=== PATIENT | male | born 2000 | race Caucasian/White ===

== ENCOUNTER 2022-06-04 20:48 | Observation (INO) | payer OTHER ==
[2022-06-04 22:03] LABS: Hemoglobin 14.6 g/dL (13.5-17.5); Mean Corpuscular HGB CONC 34.6 g/dL (32.0-36.0); Mean Corpuscular Hemoglobin 28.3 pg (27.0-33.0); Mean Corpuscular Volume 81.8 fl (81.2-95.1); Mean Platelet Volume 11.2 fl (7.4-10.4); Platelet Count 92 10x3/uL (150-450); RBC Distribution Width 12.5 % (11.5-14.5); Red Blood Cell (RBC) Count 5.16 10x6/uL (4.32-5.72); White Blood Cell (WBC) Count 2.1 10x3/uL (3.5-10.5)
[2022-06-04 22:11] LABS: ALT (SGPT) 379 U/L (8-55); AST (SGOT) 361 U/L (5-34); Albumin 3.9 g/dL (3.5-5.0); Alkaline Phosphatase 203 U/L (40-110); Anion Gap 11 mmol/L (10-20); BUN (Urea Nitrogen) 8 mg/dL (8.9-20.6); Calc. Creatinine Clearance 0 mL/min (70-130); Calcium 8.8 mg/dL (7.8-10.44); Carbon Dioxide 27 mmol/L (22-29); Chloride 103 mmol/L (98-107); Estimated GFR 108; Globulin 2.8 g/dL (2.4-3.5); Glucose 98 mg/dL (70-105); Potassium 3.9 mmol/L (3.5-5.1); Protein, Total 6.7 g/dL (6.0-8.3); Sodium 137 mmol/L (136-145)
[2022-06-04 22:19] LABS: MONO NEGATIVE CONTROL ZONE White (Negative) (White); MONO POSITIVE CONTROL Pink Line (Positive) (PINK/RED); Mononucleosis NEGATIVE (NEGATIVE)
[2022-06-04 22:20] LABS: MDiff Complete? YES
[2022-06-04 22:44] LABS: Band 26 % (5-11); Lymphocytes 26 % (21-51); Monocytes 7 % (0-10); Neutrophil 33 % (42-75); Reactive Lymphocytes 8 % (0-10)
[2022-06-04 22:48] LABS: Platelet Morphology Comment Appears Decreased; RBC Morphology Normal
[2022-06-05] MEDS ORDERED: Ibuprofen 200 MG TAB ONE (00:14)
[2022-06-05] MEDS ORDERED: Ondansetron PF 4 MG/2 ML Vial IVP PRN (00:56)
[2022-06-05] MEDS ORDERED: Calcium Carbonate 500 MG ChewTAB PO PRN (00:56)
[2022-06-05] MEDS ORDERED: Zolpidem Tartrate 5 MG TAB PO PRN (00:56)
[2022-06-05] MEDS ORDERED: Guaifenesin DM 100-10/5 ML UDCUP PO PRN (00:56)
[2022-06-05] MEDS ORDERED: Senokot S 8.6-50 MG TAB PO PRN (00:56)
[2022-06-05 01:38] VITALS: BMI 25.4
[2022-06-05] MEDS ORDERED: Piperacillin/Tazobactam 4.5 GM in Sodium Chloride 0.9% 100 ML IVPB SCH (02:00)
[2022-06-05] MEDS ORDERED: Lactated Ringer's 1,000 ML IV SCH (02:00)
[2022-06-05 05:27] LABS: #Monocytes 0.1 10x3/uL (0.0-1.1); #Neutrophils 1.6 10x3/uL (1.5-8.4); %Basophils 0.4 % (0.0-2.0); %Lymphocytes 29.2 % (18.0-47.0); %Monocytes 4.5 % (0.0-10.0); %Neutrophils 65.5 % (40.0-75.0); ALT (SGPT) 379 U/L (8-55); AST (SGOT) 343 U/L (5-34); Acetaminophen Less than 10.0 mcg/mL (10.0-30.0); Albumin 3.8 g/dL (3.5-5.0); Alkaline Phosphatase 196 U/L (40-110); Anion Gap 12 mmol/L (10-20); BUN (Urea Nitrogen) 8 mg/dL (8.9-20.6); CK (CPK) 87 U/L (30-200); Calc. Creatinine Clearance 127 mL/min (70-130); Carbon Dioxide 26 mmol/L (22-29); Chloride 101 mmol/L (98-107); Estimated GFR 89; Globulin 2.6 g/dL (2.4-3.5); Glucose 121 mg/dL (70-105); Hemoglobin 14.4 g/dL (13.5-17.5); Mean Corpuscular HGB CONC 35.5 g/dL (32.0-36.0); Mean Corpuscular Hemoglobin 28.7 pg (27.0-33.0); Mean Platelet Volume 11.7 fl (7.4-10.4); Platelet Count 96 10x3/uL (150-450); Potassium 3.9 mmol/L (3.5-5.1); Protein, Total 6.4 g/dL (6.0-8.3); RBC Distribution Width 12.7 % (11.5-14.5); Red Blood Cell (RBC) Count 5.01 10x6/uL (4.32-5.72); Sodium 135 mmol/L (136-145); White Blood Cell (WBC) Count 2.4 10x3/uL (3.5-10.5)
[2022-06-05 05:53] LABS: Platelet Morphology Comment Appears Decreased
[2022-06-05 05:54] LABS: RBC Morphology Normal
[2022-06-05] MEDS ORDERED: Nicotine 14 MG PATCH TD PRN (11:23)
[2022-06-05 12:33] LABS: HBCM Index 0.07 S/CO (0-0.79); HBSAg Index 0.25 S/CO (0-0.99); Hep A IgM AB Non-Reactive (NonReactive); Hep A IgM S/CO 0.17 S/CO (0-0.79); Hep B Surf Ag Non-Reactive S/CO (NonReactive); Hep C IgG Ab Non-Reactive (NonReactive); Hep C Index 0.14 S/CO (0-0.79); Hepatitis B Core IgM Abs Non-Reactive (NonReactive)
[2022-06-05] MEDS: Ibuprofen 400 MG TAB PO PRN ×2 (13:42→19:42)
[2022-06-05] MEDS: Doxycycline 100 MG CAP PO SCH (20:30)
[2022-06-06 04:28] LABS: Hemoglobin 14.2 g/dL (13.5-17.5); Mean Corpuscular HGB CONC 34.1 g/dL (32.0-36.0); Mean Corpuscular Hemoglobin 28.3 pg (27.0-33.0); Mean Corpuscular Volume 82.9 fl (81.2-95.1); Mean Platelet Volume 11.9 fl (7.4-10.4); Platelet Count 109 10x3/uL (150-450); RBC Distribution Width 12.6 % (11.5-14.5); Red Blood Cell (RBC) Count 5.02 10x6/uL (4.32-5.72); White Blood Cell (WBC) Count 2.6 10x3/uL (3.5-10.5)
[2022-06-06 04:41] LABS: ALT (SGPT) 474 U/L (8-55); AST (SGOT) 436 U/L (5-34); Albumin 3.5 g/dL (3.5-5.0); Alkaline Phosphatase 199 U/L (40-110); Anion Gap 13 mmol/L (10-20); BUN (Urea Nitrogen) 8 mg/dL (8.9-20.6); Bilirubin, Total 1.5 mg/dL (0.2-1.2); Calc. Creatinine Clearance 151 mL/min (70-130); Calcium 8.8 mg/dL (7.8-10.44); Carbon Dioxide 24 mmol/L (22-29); Chloride 106 mmol/L (98-107); Estimated GFR 110; Globulin 2.7 g/dL (2.4-3.5); Glucose 101 mg/dL (70-105); Potassium 4.2 mmol/L (3.5-5.1); Protein, Total 6.2 g/dL (6.0-8.3); Sodium 139 mmol/L (136-145)
[2022-06-06] MEDS: Ibuprofen 400 MG TAB PO PRN ×2 (04:51→12:46)
[2022-06-06 05:06] LABS: HIV (1/2) Antibody/Antigen Non-Reactive (NonReactive); HIV 1/2 INDEX 0.07 S/CO (<1.00)
[2022-06-06 06:03] LABS: MDiff Complete? YES; Platelet Morphology Comment Appears Decreased
[2022-06-06 06:09] LABS: Band 18 % (5-11); Eosinophils 1 % (0-10); Lymphocytes 29 % (21-51); Monocytes 11 % (0-10); Neutrophil 29 % (42-75); Reactive Lymphocytes 12 % (0-10)
[2022-06-06] MEDS: Doxycycline 100 MG CAP PO SCH (08:41)
[2022-06-06 10:53] VITALS: BP 118/56; TEMP 97.7
[2022-06-06 12:39] LABS: Ref Lab Test Ordered Rickettsia IGM/G; Reference Lab Name LABCORP
[2022-06-07 12:38] LABS: EBV VCA IgM <36.0 U/mL (0.0-35.9)
[2022-06-08 12:10] LABS: Bartonella henselae IgG Negative titer (Neg:<1:320); Bartonella henselae IgM Negative titer (Neg:<1:100); Bartonella quintana IgG Negative titer (Neg:<1:320); Bartonella quintana IgM Negative titer (Neg:<1:100)
== END 2022-06-06 13:17 | disposition home or self-care (01) ==
LOC: CSHERS 20:48 → CSHTELE 06-05 01:20
PROVIDERS: ADMIT Student in an Organized Health Care Education/Training Program; ATTEND Nurse Practitioner Family
DX: R50.9 Fever, unspecified (principal); R21 Rash and other nonspecific skin eruption; I88.0 Nonspecific mesenteric lymphadenitis; R53.83 Other fatigue; R53.81 Other malaise; D72.825 Bandemia; D72.819 Decreased white blood cell count, unspecified; R79.89 Other specified abnormal findings of blood chemistry; D69.6 Thrombocytopenia, unspecified; F17.200 Nicotine dependence, unspecified, uncomplicated; Z79.899 Other long term (current) drug therapy
CPT/HCPCS: 36415; 74177; 76705; 80053; 80074; 80143; 82550; 83605; 83690; 85025; 86308; 86611; 86664; 86665; 86720; 87040; 87389; 87633; 87798; 96374; 80307; G0378; J2543; J3490; J7120